=== PATIENT | male | born 1955 | race African-American/Black ===

== ENCOUNTER 2017-02-02 05:50 | Emergency (ER) | payer MEDICAID, OTHER ==
[~2017-02-02] VITALS: Ht 182.9 cm; Wt 110.0 kg
[2017-02-02 08:13] VITALS: BP 156/85
== END 2017-02-02 08:14 | disposition home or self-care (01) ==
LOC: ER 07:34
DX: R68.2 Dry mouth, unspecified (principal); G47.30 Sleep apnea, unspecified; R06.83 Snoring; E78.5 Hyperlipidemia, unspecified; I10 Essential (primary) hypertension; F17.210 Nicotine dependence, cigarettes, uncomplicated; Z71.6 Tobacco abuse counseling; Z98.890 Other specified postprocedural states
CPT/HCPCS: 99282; Z7610

== ENCOUNTER 2019-03-21 23:38 | Emergency (ER) | payer MEDICAID ==
[~2019-03-21] VITALS: Ht 182.9 cm; Wt 122.0 kg
[2019-03-22 02:01] LABS: BASOPHILS % 0.9 % (0.0-2.0); EOSINOPHILS % 3.5 % (0.0-5.0); LYMPHOCYTES % 40.3 % (20.0-50.0); MEAN CORPUSCULAR HEMOGLOBIN 25.7 pg (28.0-32.0); MEAN CORPUSCULAR VOLUME 78.8 fL (80.0-94.0); MEAN PLATELET VOLUME 8.4 fl (7.4-10.4); MONOCYTES % 6.7 % (2.0-8.0); NEUTROPHILS % 48.6 % (40.0-76.0); PLATELET 200 x1000/uL (130-400); RED BLOOD CELL COUNT 5.08 mill/uL (4.7-6.1); RED CELL DISTRIBUTION WIDTH 16.1 % (11.6-14.6)
[2019-03-22 02:06] LABS: CHLORIDE 107 mEq/L (98-107); INR 0.9; PROTHROMBIN TIME 9.8 sec (9.6-11.0)
[2019-03-22] MEDS ORDERED: MORPHINE SULFATE 10 MG/ML CPJ IM ONE (02:45)
[2019-03-22] MEDS ORDERED: ONDANSETRON HCL 4MG/2ML INJ IM ONE (02:45)
[2019-03-22 03:38] VITALS: BP 162/93
== END 2019-03-22 04:40 | disposition home or self-care (01) ==
LOC: ER 23:38
DX: R51 Headache (principal); I10 Essential (primary) hypertension; F12.10 Cannabis abuse, uncomplicated
CPT/HCPCS: 36415; 70450; 80053; 85025; 85610; 96372; 99284; J2270; J2405; Z7610

== ENCOUNTER 2019-05-09 18:53 | Emergency (ER) | payer MEDICAID ==
[~2019-05-09] VITALS: Ht 175.3 cm; Wt 118.0 kg
[2019-05-09] MEDS ORDERED: IBUPROFEN 600MG TABLET PO ONE (20:00)
[2019-05-09] MEDS ORDERED: LIDOCAINE 1%/EPI 1:100,000 10 ML VIAL IJ ONE (20:00)
[2019-05-09] MEDS ORDERED: ACETAMINOPHEN 325MG TABLET PO ONE (20:00)
[2019-05-09] MEDS ORDERED: BACITRACIN ZINC OINT UDPKT TOP ONE (20:00)
[2019-05-09] MEDS ORDERED: TETANUS, DIPHTHERIA, PERTUSSIS VAC/PF 0.5ML (>7YR OLD) IM ONE (20:00)
[2019-05-09] MEDS ORDERED: LIDOCAINE HCL/EPINEPHRINE 1%-EPI 1:100,000 20 ML VIAL INFIL NR (20:15)
[2019-05-09 21:44] VITALS: BP 156/88
== END 2019-05-09 21:44 | disposition home or self-care (01) ==
LOC: ER 18:53
DX: S51.812A Laceration without foreign body of left forearm, initial encounter (principal); W26.0XXA Contact with knife, initial encounter; Y93.89 Activity, other specified; Y92.89 Other specified places as the place of occurrence of the external cause; Y99.8 Other external cause status
CPT/HCPCS: 90471; 90715; 99283; J3490; Z7610

== ENCOUNTER 2019-05-20 11:23 | Emergency (ER) | payer MEDICAID ==
[~2019-05-20] VITALS: Ht 182.9 cm; Wt 120.0 kg
[2019-05-20 12:54] VITALS: BP 157/89
== END 2019-05-20 12:55 | disposition home or self-care (01) ==
LOC: ER 11:23
DX: Z48.02 Encounter for removal of sutures (principal)
CPT/HCPCS: 99281